=== PATIENT | male | born 1980 | race Caucasian/White ===

== ENCOUNTER 2019-09-11 22:09 | Emergency (ER) | payer OTHER ==
[~2019-09-11] VITALS: Ht 167.6 cm; Wt 93.0 kg
[2019-09-11 22:48] VITALS: BP 141/80
[2019-09-12] MEDS ORDERED: IBUPROFEN 600 MG TABLET PO ONE ×2 (00:03→00:30)
[2019-09-12] MEDS ORDERED: TDAP [DIPH/PERTUSSIS/TET] 0.5 ML VIAL IM ONE ×2 (00:04→00:30)
== END 2019-09-12 00:13 | disposition home or self-care (01) ==
LOC: ER 22:14
DX: S00.81XA Abrasion of other part of head, initial encounter (principal); S60.312A Abrasion of left thumb, initial encounter; W54.0XXA Bitten by dog, initial encounter; Y93.89 Activity, other specified; Y92.89 Other specified places as the place of occurrence of the external cause; Y99.8 Other external cause status
CPT/HCPCS: 90715

== ENCOUNTER 2021-02-22 08:45 | Emergency (ER) | payer OTHER ==
[~2021-02-22] VITALS: Ht 165.1 cm; Wt 93.0 kg
[2021-02-22 08:52] VITALS: BP 125/72
[2021-02-22 09:23] LABS: BASOPHILS % (AUTO) 0.7 % (0.0-2.0); HEMATOCRIT 41 % (39-51); HEMOGLOBIN 13.5 g/dL (13.5-17.5); LYMPHOCYTES # (AUTO) 0.7 /CMM (0.8-4.8); MEAN CORPUSCULAR HGB CONC 33 g/dl (31.0-36.0); MEAN CORPUSCULAR VOLUME 86 fL (80-96); MONOCYTES # (AUTO) 0.4 /CMM (0.1-1.30); MONOCYTES % (AUTO) 6.3 % (2.0-12.0); NEUTROPHILS # (AUTO) 4.4 /CMM (1.8-8.9); PLATELET COUNT (AUTO) 247 /CMM (150-450); RED BLOOD CELL COUNT(AUTO) 4.77 MIL/uL (4.5-6.0); WHITE BLOOD COUNT (AUTO) 5.7 K/uL (4.3-11.0)
[2021-02-22 09:30] LABS: CALCIUM, SERUM 8.4 mg/dL (8.5-10.1)
[2021-02-22] MEDS ORDERED: ALBU8.5H8 INH (10:07)
[2021-02-22] MEDS ORDERED: AZIT250T PO (10:07)
--- NOTE | 2021-02-22 10:28 | NUR ---
Patient discharged to home in stable condition. Written and verbal after care instructions given. Patient verbalizes understanding of instruction.
== END 2021-02-22 10:13 | disposition home or self-care (01) ==
LOC: ER 08:48
DX: R05 Cough (principal); Z20.822 Contact with and (suspected) exposure to COVID-19; J98.11 Atelectasis
CPT/HCPCS: 36415; 71046; 80048; 85025; 99284; C9803; U0003